=== PATIENT | female | born 1995 | race Caucasian/White ===

== ENCOUNTER 2021-10-17 18:33 | Outpatient (CLI) | payer OTHER, SELFPAY ==
[2021-10-17 18:56] VITALS: BMI 32.8
[2021-10-17 19:18] LABS: Microscopic, Urine URINE MICROSCOPIC (MICROSCOPIC)
[2021-10-17 19:21] VITALS: BP 128/88; PULSE 92; RESP 18; TEMP 36.6; O2SAT 98; BMI 32.8
[2021-10-17 19:22] LABS: Coronavirus 19, PCR Not Detected (NotDetected); Influenza A, PCR Not Detected (NotDetected); Influenza B, PCR Not Detected (NotDetected)
[2021-10-17 19:23] LABS: Appearance,Urine CLEAR (Clear); Bilirubin,Urine Negative (Negative); Blood, Urine 3+ (Negative); Color,Urine YELLOW (Yellow); Glucose,Urine (UA) Negative (Negative); Ketones,Urine Negative (Negative); Leukocyte Esterase,Urine 2+ (Negative); Nitrate,Urine POSITIVE (Negative); PH,Urine 6.5 (5.0-8.5); Protein,Urine 2+ (Negative); Specific Gravity, Urine 1.025 (1.005-1.030); Urobilinogen,Urine 0.2 EU/dl (0.2)
[2021-10-17 19:35] LABS: WBC,Urine TNTC #/hpf (0-3)
[2021-10-17 19:36] LABS: Bacteria,Urine 3+ /lpf; Benzodiazepines Screen,Urine Negative ng/ml (<200)
[2021-10-17 19:37] LABS: Amphetamine/Metha Screen,Urine Negative ng/ml (<1000); Barbiturates Screen,Urine Negative ng/ml (<200)
[2021-10-17 19:38] LABS: Cannabinoid Screen,Urine Negative ng/ml (<50)
[2021-10-17 19:39] LABS: Cocaine Screen,Urine Negative ng/ml (<300); Methadone Screen,Urine Negative ng/ml (<300)
[2021-10-17 19:40] LABS: Opiate Screen,Urine Negative ng/ml (<300)
[2021-10-17 19:41] LABS: Phencyclidine Screen,Urine Negative ng/ml (<25)
[2021-10-17 20:18] LABS: Fetal Fibronectin (Rapid) Negative (Negative)
== END 2021-10-17 20:10 | disposition home or self-care (01) ==
LOC: OBOUT 18:41 → OB 18:41
PROVIDERS: Visit Provider Nurse Practitioner Obstetrics & Gynecology
DX: O26.893 Other specified pregnancy related conditions, third trimester (principal); Z3A.30 30 weeks gestation of pregnancy; M54.50 Low back pain, unspecified
CPT/HCPCS: 59025; 80305; 81001; 82731; 87086; 87088; 87186; C9803; U0003; U0005

== ENCOUNTER 2021-10-18 12:28 | Outpatient (CLI) | payer OTHER, SELFPAY ==
[2021-10-18 12:52] VITALS: BP 104/51; PULSE 120; RESP 18; TEMP 37.2; O2SAT 100; BMI 32.8
[2021-10-18 14:22] LABS: Microscopic, Urine URINE MICROSCOPIC (MICROSCOPIC)
[2021-10-18 14:25] LABS: Appearance,Urine CLEAR (Clear); Bilirubin,Urine Negative (Negative); Blood, Urine TRACE-I (Negative); Color,Urine YELLOW (Yellow); Glucose,Urine (UA) Negative (Negative); Ketones,Urine 3+ (Negative); Leukocyte Esterase,Urine 1+ (Negative); Nitrate,Urine POSITIVE (Negative); Protein,Urine 1+ (Negative); Specific Gravity, Urine 1.025 (1.005-1.030); Urobilinogen,Urine 0.2 EU/dl (0.2)
[2021-10-18 14:30] LABS: Bacteria,Urine 4+ /lpf; Mucus,Urine 1+ /lpf; Squamous Epithelial Cell,Urine 20-50 #/hpf (0-5); WBC,Urine 20-50 #/hpf (0-3)
== END 2021-10-18 14:25 | disposition home or self-care (01) ==
LOC: OBOUT 12:28 → OB 12:29
PROVIDERS: Visit Provider Obstetrics & Gynecology
DX: O26.893 Other specified pregnancy related conditions, third trimester (principal); Z3A.30 30 weeks gestation of pregnancy; N39.0 Urinary tract infection, site not specified
CPT/HCPCS: 59025; 81001; 96360; 96365; 96367; G0463; J0696

== ENCOUNTER 2021-10-19 13:19 | Outpatient (CLI) | payer OTHER, SELFPAY ==
[2021-10-19 13:49] VITALS: BP 130/63; PULSE 95; RESP 18; TEMP 36.4; O2SAT 99
== END 2021-10-19 14:03 | disposition home or self-care (01) ==
LOC: INF 13:20
PROVIDERS: Visit Provider Obstetrics & Gynecology
DX: N39.0 Urinary tract infection, site not specified (principal)
CPT/HCPCS: 96372; J0696

== ENCOUNTER → 2021-10-30 10:09 | Outpatient (CLI) | payer OTHER, SELFPAY ==
[2021-10-30 10:44] LABS: Basophils # 0.1 K/mm3 (0-0.2); Basophils % 0.8 % (0.1-2.0); Eosinophils % 0.4 % (0.1-12.0); Hematocrit 32.8 % (37.0-47.0); Hemoglobin 11.2 g/dL (12.2-16.2); Lymphocytes # 2.1 K/mm3 (0.7-4.5); Lymphocytes % 21.8 % (10-50); Mean Corpuscular Hemoglobin 30.3 pg (27.0-31.2); Mean Corpuscular Volume 89.2 fl (81-99); Mean Platelet Volume 8.6 fl (7.4-10.4); Monocytes # 0.3 K/mm3 (0.1-1.0); Monocytes % 3.1 % (1.7-9.3); Neutrophils % 73.8 % (37.0-80.0); Platelet Count 362 K/mm3 (142-424); Red Blood Count 3.68 M/mm3 (4.20-5.40); Red Cell Distribution Width 14.7 % (11.5-17.5); White Blood Count 9.4 K/mm3 (4.8-10.8)
[2021-10-30 10:50] LABS: Glucose,Fasting 89 mg/dl (74-100)
[2021-10-30 12:35] LABS: Glucose 1 Hour 134 mg/dL (74-100)
== END ==
PROVIDERS: Visit Provider Obstetrics & Gynecology
DX: Z34.90 Encounter for supervision of normal pregnancy, unspecified, unspecified trimester (principal)
CPT/HCPCS: 82951; 85025

== ENCOUNTER 2021-11-02 11:11 | Outpatient (CLI) | payer OTHER, SELFPAY ==
[2021-11-02 11:45] VITALS: BP 112/74; PULSE 68; RESP 20; TEMP 36.9; O2SAT 95
== END 2021-11-02 12:00 | disposition home or self-care (01) ==
LOC: RAD 11:12
PROVIDERS: Visit Provider Obstetrics & Gynecology
DX: O09.30 Supervision of pregnancy with insufficient antenatal care, unspecified trimester (principal); O26.899 Other specified pregnancy related conditions, unspecified trimester; Z3A.32 32 weeks gestation of pregnancy; Z67.91 Unspecified blood type, Rh negative
CPT/HCPCS: 96372; J2790

== ENCOUNTER 2021-11-13 09:59 | Outpatient (CLI) | payer OTHER, SELFPAY ==
--- NOTE | 2021-11-13 09:59 | US_ITS ---
FINAL REPORT CLINICAL HISTORY: Growth and LINDA FINDINGS: There is a single live intrauterine gestation. Presentation is cephalic. Placenta is posterior, high, grade 2. movement is noted. Three-vessel cord with satisfactory umbilical cord insertion. Four-chamber heart is noted. brain and ventricles are unremarkable. Chest and diaphragm are unremarkable. ABDOMEN: Both kidneys are unremarkable. Stomach is unremarkable. SPINE: No anomalies identified. Both arms and legs noted. AMNIOTIC FLUID: Appropriate amount. MEASUREMENTS: ULTRASOUND AGE: 34 weeks 0 days. GESTATION AGE: 33 weeks 6 days. ESTIMATED WEIGHT: 2343 g GROWTH PERCENTILE: 50% BPD: 8.3 cm consistent with 33 weeks 4 days. OFD: 10.6 cm consistent with 33 weeks 4 days. HC: 29.9 cm consistent with 33 weeks 2 days. AC: 30.1 cm consistent with 34 weeks 1 day. FL: 6.74 cm consistent with 34 weeks 5 days. HC/AC: 0.99 CI: 79% FL/BPD: 81% FL/AC: 22% IMPRESSION: Single living IUP with an ultrasound age of 34 weeks 0 days. No anomalies noted. Reviewed, Interpreted and Dictated by Des Plasencia III, MD Transcribed by Magui Oswald Authenticated by Des Plasencia III, MD on 11/13/2021 11:37:25 AM [facility]
[2021-11-13 11:45] VITALS: BP 113/53; PULSE 95; RESP 18; TEMP 36.9; O2SAT 97
== END 2021-11-13 11:45 | disposition home or self-care (01) ==
LOC: RAD 09:59 → INF 10:51
PROVIDERS: Visit Provider Obstetrics & Gynecology
DX: O36.5990 Maternal care for other known or suspected poor fetal growth, unspecified trimester, not applicable or unspecified (principal)
CPT/HCPCS: 76816; 96372; J0696

== ENCOUNTER → 2021-11-13 16:49 | Outpatient (CLI) | payer OTHER, SELFPAY | PROVIDERS: Visit Provider Obstetrics & Gynecology | DX: N39.0 Urinary tract infection, site not specified (principal); B96.20 Unspecified Escherichia coli [E. coli] as the cause of diseases classified elsewhere | CPT/HCPCS: 87086; 87088; 87186 ==

== ENCOUNTER → 2021-11-20 15:50 | Outpatient (CLI) | payer OTHER, SELFPAY | PROVIDERS: Visit Provider Obstetrics & Gynecology | DX: Z34.90 Encounter for supervision of normal pregnancy, unspecified, unspecified trimester (principal) | CPT/HCPCS: 86403 ==

== ENCOUNTER 2021-12-06 06:46 | Outpatient (CLI) | payer BC, SELFPAY ==
[2021-12-06 06:52] VITALS: BP 110/70; PULSE 99; RESP 18; TEMP 37; O2SAT 98; BMI 32.5
[2021-12-06 07:03] VITALS: BMI 32.5
[2021-12-06 07:34] LABS: Microscopic, Urine URINE MICROSCOPIC (MICROSCOPIC)
[2021-12-06 07:37] LABS: Appearance,Urine CLEAR (Clear); Bilirubin,Urine Negative (Negative); Blood, Urine Negative (Negative); Color,Urine YELLOW (Yellow); Glucose,Urine (UA) Negative (Negative); Ketones,Urine Negative (Negative); Leukocyte Esterase,Urine Negative (Negative); Nitrate,Urine Negative (Negative); PH,Urine 6.5 (5.0-8.5); Protein,Urine Negative (Negative); Specific Gravity, Urine 1.015 (1.005-1.030); Urobilinogen,Urine 0.2 EU/dl (0.2)
[2021-12-06 07:50] LABS: Fetal Membrane Rupture (Rapid) Negative (Negative)
[2021-12-06 08:06] LABS: Bacteria,Urine Trace /lpf; RBC,Urine Occasional #/hpf (0-3)
[2021-12-06 08:28] LABS: Amphetamine/Metha Screen,Urine Negative ng/ml (<1000); Benzodiazepines Screen,Urine Negative ng/ml (<200)
[2021-12-06 08:29] LABS: Barbiturates Screen,Urine Negative ng/ml (<200)
[2021-12-06 08:30] LABS: Cannabinoid Screen,Urine Negative ng/ml (<50); Cocaine Screen,Urine Negative ng/ml (<300)
[2021-12-06 08:31] LABS: Methadone Screen,Urine Negative ng/ml (<300)
[2021-12-06 08:32] LABS: Opiate Screen,Urine Negative ng/ml (<300)
[2021-12-06 08:33] LABS: Phencyclidine Screen,Urine Negative ng/ml (<25)
== END 2021-12-06 08:37 | disposition home or self-care (01) ==
LOC: OBOUT 06:48 → OB 06:48
PROVIDERS: Visit Provider Obstetrics & Gynecology
DX: O60.03 Preterm labor without delivery, third trimester (principal); Z3A.37 37 weeks gestation of pregnancy; O42.90 Premature rupture of membranes, unspecified as to length of time between rupture and onset of labor, unspecified weeks of gestation
CPT/HCPCS: 59025; 80305; 81001; 84112; G0463

== ENCOUNTER 2021-12-10 20:11 | Outpatient (CLI) | payer BC, SELFPAY ==
[2021-12-10 20:18] VITALS: BMI 32.5
[2021-12-10 20:20] VITALS: BP 113/72; PULSE 99; RESP 18; TEMP 36.9; O2SAT 98; BMI 32.5
[2021-12-10 20:30] LABS: Microscopic, Urine URINE MICROSCOPIC (MICROSCOPIC)
[2021-12-10 20:44] LABS: Appearance,Urine CLEAR (Clear); Bilirubin,Urine Negative (Negative); Blood, Urine Negative (Negative); Color,Urine YELLOW (Yellow); Glucose,Urine (UA) Negative (Negative); Ketones,Urine Negative (Negative); Leukocyte Esterase,Urine Negative (Negative); Nitrate,Urine Negative (Negative); PH,Urine 6.5 (5.0-8.5); Protein,Urine Negative (Negative); Specific Gravity, Urine 1.015 (1.005-1.030); Urobilinogen,Urine 0.2 EU/dl (0.2)
[2021-12-10 20:56] LABS: Amphetamine/Metha Screen,Urine Negative ng/ml (<1000); Benzodiazepines Screen,Urine Negative ng/ml (<200)
[2021-12-10 20:57] LABS: Barbiturates Screen,Urine Negative ng/ml (<200)
[2021-12-10 20:58] LABS: Cannabinoid Screen,Urine Negative ng/ml (<50); Cocaine Screen,Urine Negative ng/ml (<300)
[2021-12-10 20:59] LABS: Methadone Screen,Urine Negative ng/ml (<300); Opiate Screen,Urine Negative ng/ml (<300)
[2021-12-10 21:00] LABS: Fetal Membrane Rupture (Rapid) Negative (Negative)
[2021-12-10 21:00] LABS: Phencyclidine Screen,Urine Negative ng/ml (<25)
[2021-12-10 21:04] LABS: Bacteria,Urine Trace /lpf; WBC,Urine Occasional #/hpf (0-3)
[2021-12-10 22:05] LABS: Fetal Membrane Rupture (Rapid) Negative (Negative)
== END 2021-12-10 22:20 | disposition home or self-care (01) ==
LOC: OBOUT 20:13 → OB 20:15
PROVIDERS: Visit Provider Nurse Practitioner Obstetrics & Gynecology
DX: O60.03 Preterm labor without delivery, third trimester (principal); Z3A.38 38 weeks gestation of pregnancy
CPT/HCPCS: 59025; 80305; 81001; 84112; G0463

== ENCOUNTER → 2021-12-11 11:12 | Outpatient (CLI) | payer BC, SELFPAY | PROVIDERS: Visit Provider Obstetrics & Gynecology | DX: Z01.812 Encounter for preprocedural laboratory examination (principal); Z11.52 Encounter for screening for COVID-19; Z34.90 Encounter for supervision of normal pregnancy, unspecified, unspecified trimester | CPT/HCPCS: C9803; U0003; U0005 ==

== ENCOUNTER 2021-12-13 04:58 | Inpatient (IN) | payer BC, SELFPAY ==
[2021-12-13 05:08] VITALS: BMI 33.1
[2021-12-13 05:49] LABS: Appearance,Urine CLEAR (Clear); Bilirubin,Urine Negative (Negative); Blood, Urine Negative (Negative); Color,Urine YELLOW (Yellow); Glucose,Urine (UA) Negative (Negative); Ketones,Urine Negative (Negative); Leukocyte Esterase,Urine Negative (Negative); Microscopic, Urine URINE MICROSCOPIC (MICROSCOPIC); Nitrate,Urine Negative (Negative); Protein,Urine Negative (Negative); Urobilinogen,Urine 0.2 EU/dl (0.2)
[2021-12-13 05:54] LABS: Coronavirus 19, PCR Not Detected (NotDetected); Influenza A, PCR Not Detected (NotDetected); Influenza B, PCR Not Detected (NotDetected)
[2021-12-13 05:56] VITALS: BP 116/73; PULSE 109; RESP 18; TEMP 36.3; O2SAT 100; BMI 33.1
[2021-12-13 05:56] LABS: Basophils # 0.1 K/mm3 (0-0.2); Basophils % 0.5 % (0.1-2.0); Eosinophils # 0.1 K/mm3 (0.0-0.4); Eosinophils % 0.9 % (0.1-12.0); Hematocrit 32.5 % (37.0-47.0); Hemoglobin 10.4 g/dL (12.2-16.2); Lymphocytes # 2.5 K/mm3 (0.7-4.5); Lymphocytes % 28.5 % (10-50); Mean Corpuscular HGB Conc 32.1 g/dL (31.8-35.4); Mean Corpuscular Hemoglobin 28.2 pg (27.0-31.2); Monocytes # 0.3 K/mm3 (0.1-1.0); Monocytes % 3.4 % (1.7-9.3); Neutrophils # 5.9 K/mm3 (1.8-7.8); Neutrophils % 66.6 % (37.0-80.0); Platelet Count 223 K/mm3 (142-424); Red Blood Count 3.69 M/mm3 (4.20-5.40); Red Cell Distribution Width 15.7 % (11.5-17.5); White Blood Count 8.9 K/mm3 (4.8-10.8)
[2021-12-13 06:00] LABS: Barbiturates Screen,Urine Negative ng/ml (<200)
[2021-12-13 06:01] LABS: Amphetamine/Metha Screen,Urine Negative ng/ml (<1000); Benzodiazepines Screen,Urine Negative ng/ml (<200)
[2021-12-13 06:02] LABS: Bacteria,Urine 1+ /lpf; Cannabinoid Screen,Urine Negative ng/ml (<50); Mucus,Urine 1+ /lpf
[2021-12-13 06:03] LABS: Cocaine Screen,Urine Negative ng/ml (<300); Methadone Screen,Urine Negative ng/ml (<300)
[2021-12-13 06:04] LABS: Opiate Screen,Urine Negative ng/ml (<300)
[2021-12-13 06:05] LABS: Phencyclidine Screen,Urine Negative ng/ml (<25)
--- NOTE | 2021-12-13 10:43 | HMH.HP ---
*Admission Date: 12/13/21 *Chief complaint: Induction of labor *History of present illness: 25 yo admitted for IOL at 38 4/7 secondary to oligohydramnios care has been sparse, with long gaps between appointments also complicated by Rh negative maternal status and mild anemia H History *Have you ever received a pneumonia vaccine?: No *Have you received a flu vaccine this season?: No Other Surgeries: Yes: Cholecystectomy. No: Amputation: No Fractures: No - *Social History Smoking Status: Never smoker Alcohol Intake: never Substance Use Type: denies use *Occupational Status:: unemployed *Travel in the last 8 weeks: None Family Hx:: Hypertension Para: 2 Review of Systems - Review of Systems Review of systems:: pertinent systems reviewed and negative unless documented below - *Genitourinary Denies abnormal vaginal bleeding Meds Home Medications Medication Instructions Recorded Confirmed Type ondansetron 4 mg disintegrating 4 mg PO Q6H PRN #30 tab 10/19/21 12/13/21 Rx tablet prenat.vits,zulema,bst-pjuz-emzvh 1 tab PO DAILY 10/30/21 12/13/21 History cephalexin 500 mg capsule 500 mg PO HS cap 11/27/21 12/13/21 History Allergies Allergy/AdvReac Type Severity Reaction Status Date / Time nitrofurantoin Allergy Vomiting Verified 12/11/21 10:17 [From Macrobid] Exam Vital signs and Labs for Last 24 Hours: Temp Pulse Resp BP Pulse Ox 97.4 F L 109 H 18 116/73 100 12/13/21 05:56 12/13/21 05:56 12/13/21 05:56 12/13/21 05:56 12/13/21 05:56 Laboratory Results - last 24 hr 12/13/21 05:35: WBC 8.9, RBC 3.69 L, Hgb 10.4 L, Hct 32.5 L, MCV 88.0, MCH 28.2, MCHC 32.1, RDW 15.7, Plt Count 223, MPV 11.0 H, Neut % (Auto) 66.6, Lymph % (Auto) 28.5, [place] % (Auto) 3.4, Eos % (Auto) 0.9, Baso % (Auto) 0.5, Neut # (Auto) 5.9, Lymph # (Auto) 2.5, [place] # (Auto) 0.3, Eos # (Auto) 0.1, Baso # (Auto) 0.1 12/13/21 05:35: Urine Color Yellow, Urine Appearance Clear, Urine pH 6.0, Ur Specific [place] 1.020, Urine Protein Negative, Urine Glucose (UA) Negative, Urine Ketones Negative, Urine Blood Negative, Urine Nitrate Negative, Urine Bilirubin Negative, Urine Urobilinogen 0.2, Ur Leukocyte Esterase Negative, Urine WBC 3-5, Ur Squamous Epith Cells 10-20, Urine Bacteria 1+, Urine Mucus 1+ 12/13/21 05:35: SARS-CoV-2 (PCR) Not detected, Influenza A Untype (PCR) Not detected, Influenza Type B (PCR) Not detected 12/13/21 05:35: Urine Opiates Screen Negative, Urine Methadone Screen Negative, Ur Barbituates Screen Negative, Ur Phencyclidine Scrn Negative, Ur Amphetamines Screen Negative, U Benzodiazepines Scrn Negative, Urine Cocaine Screen Negative, U Marijuana (THC) Screen Negative 12/13/21 05:35: Blood Type O Negative, Antibody Screen Positive I & O for Last 24 hours: Intake & Output 12/10/21 12/11/21 12/12/21 12/13/21 11:59 11:59 11:59 11:59 Weight 199 lb - Constitutional no acute distress - *Routine HEENT Exam Head: Present: normocephalic Eye: Present: EOMI, PERRL ENT: Present: mucous membranes moist - *Routine Neck Exam Present: supple. Absent: lymphadenopathy - *Routine Respiratory Exam Present: CTA bilaterally - *Routine Cardiovascular Exam Present: RRR - *Routine Abdominal Exam Present: soft, normoactive bowel sounds. Absent: tenderness - *Routine Rectal Exam Rectal:: deferred - *Routine Genitalia Exam Genitalia:: normal female Comment:: AROM, clear fluid IUPC and FSE placed without difficulty or complication. - *Routine Extremities Exam Absent: cyanosis, clubbing, edema - *Routine Skin Exam Present: warm. Absent: rash - *Routine Neurological Exam Present: alert, oriented X3 Assessment and Plan (1) 38 weeks gestation of Status: Acute Category: Medical Code(s): Z3A.38 - 38 weeks gestation of (2) Limited care Status: Acute Category: Medical Code(s): O09.30 - Supervision of with i
--- NOTE | 2021-12-13 17:33 | HMH.DN ---
- Delivery Note Delivery Date:: 12/13/21 Delivery Time:: 17:11 Anesthesia Type: None Was labor medically induced?: Yes Induction method: per pitocin protocol Gestational age (weeks): 38 Infant delivered prior to 39 weeks?: Yes Justification for early elective delivery:: Oligohydraminos Gender: Male at 1 minute: 7 at 5 minutes: 9 Delivery Procedure:: Precipitous spontaneous vaginal delivery of live born, vigorous male Delivery uncomplicated No shoulder dystocia with delivery placed in BETHEL immediately after delivery, with standard nursing assessment performed Infant Apgars: 7 & 9 Placenta spontaneously expressed and examined; noted to be complete/intact. Vulva, vagina, and cervix inspected; no lacerations present EBL: 300 cc All sponge/needle/instrument counts correct at conclusion of procedure Placental Delivery Description: Spontaneous
[2021-12-13 19:14] VITALS: BP 115/70; PULSE 87; RESP 18; TEMP 36.6; O2SAT 98
[2021-12-13 19:16] LABS: Hematocrit 30.8 % (37.0-47.0)
[2021-12-14 04:00] VITALS: BP 127/70; PULSE 88; RESP 17; TEMP 36.6; O2SAT 98
[2021-12-14 07:04] LABS: Hematocrit 29.8 % (37.0-47.0); Hemoglobin 9.6 g/dL (12.2-16.2)
[2021-12-14 08:22] VITALS: BP 117/62; PULSE 85; RESP 18; TEMP 36.7; O2SAT 99
--- NOTE | 2021-12-14 09:09 | P.PN_ITS ---
Internal Medicine - PN: Subj *Date: 12/14/21 *Time: 09:09 Interval history: PPD #1 No unusual complaints Ambulating and voiding without difficulty Tolerating regular diet Asymptomatic with buucc-vk-zttqsid anemia Hgb dropped to 9.6 from 10.4 Exam Vital signs and Labs for Last 24 Hours: Temp Pulse Resp BP Pulse Ox 97.6 F 83 18 109/65 L 98 12/15/21 03:40 12/15/21 03:40 12/15/21 03:40 12/15/21 03:40 12/15/21 03:40 Laboratory Results - last 24 hr 12/13/21 05:35: Crossmatch ([facility]) See Detail I & O for Last 24 hours: Intake & Output 12/12/21 12/13/21 12/14/21 12/15/21 11:59 11:59 11:59 11:59 Weight 199 lb Narrative: CONSTITUTIONAL: no acute distress HEENT: mucous membranes moist PULMONARY: breathing unlabored without audible wheezes CV: no tachycardia or visible JVD; normal LE peripheral pulses ABD: soft, NT/ND, no guarding : fundus firm below umbilicus SKIN: no visible rash or lesions EXT: 1+ edema LEs NEURO: alert/oriented, no altered mental status PSYCH: appropriate mood and demeanor Assessment and Plan (1) 38 weeks gestation of Status: Acute Category: Medical Code(s): Z3A.38 - 38 weeks gestation of (2) Limited care Status: Acute Category: Medical Code(s): O09.30 - Supervision of with insufficient care, unspecified trimester (3) Oligohydramnios Status: Acute Category: Medical Code(s): O41.00X0 - Oligohydramnios, unspeci fied trimester, not applicable or unspecified (4) Anemia complicating Status: Acute Category: Medical Code(s): O99.019 - Anemia complicating , unspecified trimester (5) Rh negative status during Status: Acute Category: Medical Code(s): O26.899 - Other specified related conditions, unspecified trimester; Z67.91 - Unspecified blood type, Rh negative (6) Vaginal delivery Status: Acute Category: Medical Code(s): O80 - Encounter for full-term uncomplicated delivery - Assessment and plan all Dx Assessment and Plan for all problems:: Routine care FeSO4 for anemia Anticipate discharge home PPD #2
[2021-12-14 15:59] VITALS: BP 117/62; PULSE 91; RESP 20; TEMP 36.7; O2SAT 99
[2021-12-14 19:48] VITALS: BP 109/53; PULSE 91; RESP 18; TEMP 36.7; O2SAT 96
[2021-12-15 03:40] VITALS: BP 109/65; PULSE 83; RESP 18; TEMP 36.4; O2SAT 98
--- NOTE | 2021-12-15 09:12 | P.DS_ITS ---
General - General Admission date:: 12/13/21 Discharge date: 12/15/21 HPI HPI: 25 yo admitted for IOL at 38 4/7 secondary to oligohydramnios care has been sparse, with long gaps between appointments also complicated by Rh negative maternal status and mild anemia Hospital Course Hospital Course: course uncomplicated Discharged home on PPD #2 in stable condition No unusual complaints Ambulating and voiding without difficulty Tolerating regular diet Asymptomatic with uxske-uv-qnkepjv anemia Hgb dropped to 9.6 from 10.4 Rhogam Administration: Not Indicated Objective Vital signs: Temp Pulse Resp BP Pulse Ox 97.6 F 83 18 109/65 L 98 12/15/21 03:40 12/15/21 03:40 12/15/21 03:40 12/15/21 03:40 12/15/21 03:40 Narrative: CONSTITUTIONAL: no acute distress HEENT: mucous membranes moist PULMONARY: breathing unlabored without audible wheezes CV: no tachycardia or visible JVD; normal LE peripheral pulses ABD: soft, NT/ND, no guarding : fundus firm below umbilicus SKIN: no visible rash or lesions EXT: 1+ edema LEs NEURO: alert/oriented, no altered mental status PSYCH: appropriate mood and demeanor Results Labs on day of discharge: Labs from last 24 hours 12/13/21 05:35 Crossmatch ([facility]G) See Detail DS: Diagnosis - Discharge Diagnosis (1) 38 weeks gestation of Status: Acute (2) Limited care Status: Acute (3) Oligohydramnios Status: Acute (4) Anemia complicating Status: Acute (5) Rh negative status during Status: Acute (6) Vaginal delivery Status: Acute Discharge Plan - Patient Discharge Instructions ACTIVITY: Continue current activity DIET: regular diet Additional Instructions: NOTHING IN THE VAGINA FOR 6 WEEKS NO TUB BATHS DRINK PLENTY OF FLUIDS Patient Instructions: Depression, Hemorrhage, DI for Labor and Delivery, Vaginal , DI for Pre-eclampsia, [facility] Post Discharge Instructions, Preventing the Spread of Coronavirus Discharge Inst ructions - Follow up Plan Follow up with: Glenys Becerra MD [Staff Physician] - 01/24/22 9:30 am Disposition: Home, Self-Care Condition at discharge:: Stable Home Medications: Home Medications Medication Instructions Recorded Confirmed Type ondansetron 4 mg disintegrating 4 mg PO Q6H PRN #30 tab 10/19/21 12/13/21 Rx tablet prenat.vits,zulema,syy-kweg-nydjm 1 tab PO DAILY 10/30/21 12/13/21 History cephalexin 500 mg capsule 500 mg PO HS cap 11/27/21 12/13/21 History Prescriptions/Medication Reconciliation: New Ibuprofen [Motrin 400mg tablet] 800 mg PO Q6HP PRN tab PRN Reason: Mild To Moderate Pain Acetaminophen [Acetaminophen 325mg tab] 650 mg PO Q4HP PRN tab PRN Reason: Mild Pain Continued prenat.vits,zulema,lkp-iurv-enkbu 1 tab PO DAILY cephalexin 500 mg capsule 500 mg PO HS cap ondansetron 4 mg disintegrating tablet 4 mg PO Q6H PRN #30 tab PRN Reason: nausea and vomiting - Problem Reconciliation Problems Reviewed?: Yes
== END 2021-12-15 14:00 | disposition home or self-care (01) | DRG 806 ==
PROVIDERS: Admitting Provider Obstetrics & Gynecology; Visit Provider Obstetrics & Gynecology
DX: O99.02 Anemia complicating childbirth (principal); O41.03X0 Oligohydramnios, third trimester, not applicable or unspecified; Z37.0 Single live birth; Z3A.38 38 weeks gestation of pregnancy
CPT/HCPCS: 59409; 36415; 59025; 80305; 81001; 85014; 85018; 85025; 86850; 86870; 94761; C1758; C9803; G0283; U0003; U0005

== ENCOUNTER → 2022-09-12 06:28 | Outpatient (CLI) | payer BC, SELFPAY | PROVIDERS: PCP Nurse Practitioner Family; Visit Provider Nurse Practitioner Family | DX: J02.9 Acute pharyngitis, unspecified (principal) | CPT/HCPCS: 87070 ==

== ENCOUNTER 2023-06-12 21:17 | Emergency (ER) | payer BC, SELFPAY ==
[2023-06-12 21:19] VITALS: BP 129/79; PULSE 92; RESP 18; TEMP 36.4; O2SAT 99; BMI 33.3
--- NOTE | 2023-06-12 21:39 | XR_ITS ---
PROCEDURE INFORMATION: Exam: XR Left Foot Exam date and time: 06/12/2023 9:40 PM Age: 27 years old Clinical indication: Pain; Foot; Left; Patient HX: Hit pinky toe on furniture; Additional info: Deformity TECHNIQUE: Imaging protocol: Radiologic exam of the left foot. Views: 1 or 2 views. COMPARISON: No relevant prior studies available. FINDINGS: Bones/joints: There is a minimally displaced fracture through the 5th proximal phalanx with associated soft tissue swelling. Soft tissues: See Bones/joints finding. IMPRESSION: There is a minimally displaced fracture through the 5th proximal phalanx with associated soft tissue swelling.
[2023-06-12 22:00] VITALS: BP 125/82; PULSE 90; RESP 20; O2SAT 98
--- NOTE | 2023-06-12 22:25 | HMH.EDGENADL ---
Discharge Plan Disposition Patient Disposition: Home, Self-Care Prescriptions Prescriptions: No Action No Known Home Medications Referrals Follow up/Referrals: Provider,Referral, [Primary Care Provider] - See instructions Activity Restrictions/Add. Instructions Additional Instructions/Restrictions: Call your family doctor to establish care for this visit to the emergency department and schedule follow-up within 48 hours to ensure improvement. If you have any worsening of your condition or any other concerning signs or symptoms, return to the emergency department or your primary care doctor for further evaluation. Wear hard sole shoe as much as possible until follow-up. Take Tylenol 1000 mg every 6 hours (4 times daily) and ibuprofen 400 mg every 6 hours (4 times daily) as needed with food and water to prevent GI upset and kidney damage. Clinical Impressions Clinical Impression: Fracture of left toe Discharge ED Provider: Den Bowie General Adult HPI General Chief complaint: Extremity Problem,Nontraumatic Stated complaint: AO 06/12@2044 injured l Foot Time Seen by Provider: 06/12/23 21:22 Mode of Arrival: Ambulatory Source of Information: Patient Limitations: No Limitations Description of Symptoms (Recalled from ER Triage Doc. by RN): Pt caught left pinky toe on edge of her coffee table. Obvious deformity pain 5/10. No redness or swelling, palpable pulses History of Present Illness HPI narrative: Is a 27-year-old female with no relevant medical history presenting with left little toe injury. Patient states that she hit it on a coffee table just before arrival. Cannot move it, but can still feel it. No other trauma sustained. Related Data Home Medications Medication Instructions Recorded Confirmed No Known Home Medications 06/12/23 06/12/23 Allergies Allergy/AdvReac Type Severity Reaction Status Date / Time nitrofurantoin Allergy Vomiting Verified 11/06/22 11:51 [From Macrobid] [facility] Disclaimer: The information contained in this section may have been updated after the patient was seen, as this information can be updated by other users. Surgical History History of cholecystectomy Family History Mother Hypertension Grandmother Hypertension Social History Smoking Status: Never smoker alcohol intake: never substance use type: denies use current occupational status: unemployed Travel in the last 8 weeks: None ROS Obtained: Yes All systems reviewed & no additional complaints except as documented Physical Exam General General appearance: alert, in no apparent distress and other ( ) Head Head exam: atraumatic and normocephalic Eye Eye exam: Present normal appearance, PERRL and EOMI ENT ENT exam: Present mucous membranes moist Neck Neck exam: Present normal inspection, full ROM and trachea midline Respiratory Respiratory exam: Absent respiratory distress, wheezes, stridor, accessory muscle use or prolonged expiratory phase Cardiovascular Cardiovascular exam: Present regular rate and normal rhythm Abdominal Exam Abdominal exam: Present soft; Absent distention, tenderness, guarding, rebound, rigidity or normal bowel sounds Extremities Exam Extremities exam: Absent edema Neurological Exam Neurological exam: Present alert, oriented X3, CN II-XII intact and normal gait; Absent motor sensory deficit Skin Skin exam: Present warm and dry; Absent diaphoresis or erythema Medical Decision Making Medical Records Medical records reviewed: Yes I reviewed the patient's medical records. Garry Inquiry Pt receiving controlled substance: No Garry was queried for this patient: No Vital Signs: 06/12/23 21:19 06/12/23 22:00 06/12/23 22:30 Temperature 97.5 F L Temperature Source Oral Pulse Rate 90
[2023-06-12 22:30] VITALS: BP 114/72; PULSE 88; RESP 18; O2SAT 99
[2023-06-12 23:00] VITALS: BP 122/67; PULSE 81; RESP 20; O2SAT 100
[2023-06-12 23:30] VITALS: BP 108/74; PULSE 80; RESP 18; O2SAT 100
[2023-06-13 00:15] VITALS: BP 115/78; PULSE 85; RESP 20; TEMP 36.7; O2SAT 98
== END 2023-06-13 00:17 | disposition home or self-care (01) ==
PROVIDERS: Emergency Provider Emergency Medicine
DX: S92.512A Displaced fracture of proximal phalanx of left lesser toe(s), initial encounter for closed fracture (principal); W22.09XA Striking against other stationary object, initial encounter
CPT/HCPCS: 73620; 99283

== ENCOUNTER 2024-04-16 08:00 | Emergency (ER) | payer OTHER, BC, SELFPAY ==
[2024-04-16 08:10] VITALS: BP 133/87; PULSE 80; RESP 20; TEMP 36.6; O2SAT 98; BMI 33.4
--- NOTE | 2024-04-16 08:23 | ED_ITS ---
Discharge Plan Disposition Patient Disposition: Home, Self-Care Condition: Good Prescriptions Prescriptions: New azithromycin [Zithromax] 250 mg tablet 250 mg PO UD DOSE PK Qty: 6 0RF Rx Instructions: Take two (2) tablets today, then one (1) tablet days #2 thru #5 methylprednisolone 4 mg Tablets,Dose Pack 4 mg PO DIRECTED 6 Days Qty: 21 0RF Rx Instructions: Take 1 pack as directed for 6 days cjwwlvrvfwnqktf-yakewhcbq-QM [Bromfed DM] 2-30-10 mg/5 mL Syrup 5 ml PO Q6H PRN (Reason: Cough) Qty: 240 0RF Referrals Follow up/Referrals: Nargis De Paz APRN [Primary Care Provider] - See instructions Activity Restrictions/Add. Instructions Additional Instructions/Restrictions: Drink plenty of fluids. Take tylenol or ibuprofen for pain or fever. Take the medications as directed. Follow up with your regular doctor. GO TO THE ER FOR ANY WORSENING SYMPTOMS Clinical Impressions Clinical Impression: Acute viral syndrome, Bronchitis Stand Alone Forms Stand Alone Forms: Work/School Release Instructions Patient Instructions: DI for Acute Bronchitis, DI for Viral Syndrome Discharge ED Provider: Ben Loera [facility] General Stated complaint: chest congestion cough Mode of Arrival: Ambulatory Source of Information: Patient Limitations: No Limitations Time Seen by Provider: 04/16/24 08:22 Description of Symptoms (Recalled from Triage Doc. by RN): PATIENT C/O COUGH, SOA, AND CHEST HURTING WITH COUGH AND TAKING A DEEP BREATH X 2 DAYS HEENT Symptoms (Recalled from RN notes): No Resp Symptoms (Recalled from RN notes): Yes Skin Symptoms (Recalled from RN notes): No MS Symptoms (Recalled from RN notes): No Functional Status (Recalled from RN notes): WNL History of Present Illness Provider Complaint: She states that for the past 4 days she has had chest tightness, chest congestion with productive cough, pleuritic type chest pain, and malaise. Related Data Previous Rx's Medication Instructions Recorded azithromycin 250 mg tablet 250 mg PO UD DOSE PK #6 tabs 04/16/24 (Zithromax) qgqfyiofpxxrbrs-ischzvvsyvpouyp-LS 5 ml PO Q6H PRN Cough #240 mL 04/16/24 2 mg-30 mg-10 mg/5 mL oral syrup (Bromfed DM) methylprednisolone 4 mg tablets in 4 mg PO DIRECTED 6 days #21 tabs 04/16/24 a dose pack Allergies Allergy/AdvReac Type Severity Reaction Status Date / Time nitrofurantoin Allergy Vomiting Verified 03/04/24 13:45 [From Macrobid] Worker's Comp Is this a Worker's Comp case?: No [facility] Disclaimer: The information contained in this section may have been updated after the patient was seen, as this information can be updated by other users. Surgical History History of cholecystectomy Family History Mother Hypertension Grandmother Hypertension Social History Smoking Status: Never smoker alcohol intake: never substance use type: denies use current occupational status: unemployed Travel in the last 8 weeks: None ROS Obtained: Yes All systems reviewed & no additional complaints except as documented Constitutional Constitutional: Reports poor appetite Eyes Eyes: Reports system reviewed and no additional complaints, except as documented ENT Ears, Nose, Mouth, and Throat: Reports as per HPI Cardiovascular Cardiovascular: Reports system reviewed and no additional complaints, except as documented and Denies chest pain Respiratory Respiratory: Denies shortness of breath, Reports chest congestion, Reports cough, Denies stridor and Denies wheezing Gastrointestinal Gastrointestingal: Reports system reviewed and no additional complaints, except as documented; Denies abdominal pain, diarrhea or vomiting Musculoskeletal Musculoskeletal: Reports system reviewed and no additional complaints, except as documented and Denies arthralgias Integumentary/Breasts Skin/Breast: Reports system reviewed and no additional complaints, except as documented and Denies rash Neurologic Neurologic: Denies paresthesias Allergic/Immunologic Allergic/Immunologic: Denies wheezing Physical Exam General General appearance: alert and in no apparent distress Eye Eye exam: Present normal appearance, PERRL and EOMI ENT ENT exam: Present mucous membranes moist and normal external ear exam Expanded ENT Exam External ear exam: Present normal external inspection TM/Canal exam: Bilateral TM: erythema and bulging Nose exam: Absent sinus tenderness Nasal speculum exam: Bilateral: normal Mouth exam: Present normal external inspection; Absent drooling Teeth exam: Present normal inspection Throat exam: Present tonsillar erythema and tonsillomegaly Neck Neck exam: Present normal inspection, full ROM and trachea midline; Absent tenderness, lymphadenopathy or thyromegaly Chest Chest inspection: Present normal inspection and symmetric chest wall rise; Absent tenderness or rash Respiratory Respiratory exam: Present normal lung sounds bilaterally; Absent respiratory distress, wheezes, stridor or accessory muscle use Cardiovascular Cardiovascular exam: Present regular rate, normal rhythm and normal heart sounds Abdominal Exam Abdominal exam: Present soft; Absent distention, tenderness, guarding, rebound or rigidity Extremities Exam Extremities exam: Present normal inspection, full ROM and normal capillary refill; Absent tenderness or calf tenderness Back Exam Back exam: Present normal inspection and full ROM; Absent tenderness Neurological Exam Neurological exam: Present alert and oriented X3 Psychiatric Psychiatric exam: Present normal affect and normal mood Skin Skin exam: Present warm, dry, intact and normal color Lymphatic Lymphatic Findings: no adenopathy Medical Decision Making Medical Records Medical records reviewed: No I reviewed the patient's medical records. Garry Inquiry Pt receiving controlled substance: No Vital Signs: 04/16/24 08:10 Temperature 97.9 F Temperature Source Oral Pulse Rate [Left Brachial] 80 Respiratory Rate 20 Blood Pressure [Left Arm] 133/87 Blood Pressure Mean [Left Arm] 102 Blood Pressure Source [Left Arm] Automatic Cuff Blood Pressure Position [Left Arm] Sitting 02 Sat by Pulse Oximetry 98 Oxygen Delivery Method Room Air
[2024-04-16 08:42] VITALS: BP 133/87; PULSE 80; RESP 20; TEMP 36.6; O2SAT 98
[2024-04-16 08:49] LABS: Coronavirus 19, PCR Not Detected (NotDetected); Influenza A, PCR Not Detected (NotDetected); Influenza B, PCR Not Detected (NotDetected)
== END 2024-04-16 08:44 | disposition home or self-care (01) ==
PROVIDERS: Emergency Provider Nurse Practitioner Family; PCP Nurse Practitioner Family
DX: R07.1 Chest pain on breathing (principal); J20.9 Acute bronchitis, unspecified; R05.9 Cough, unspecified; B34.9 Viral infection, unspecified
CPT/HCPCS: 87636; 99204; 99212; G0463

== ENCOUNTER 2024-05-03 13:21 | Outpatient (CLI) | payer OTHER, BC, SELFPAY ==
[2024-05-03 14:24] LABS: HCG,Quantitative < 2 mIU/ml (0-5.42)
[2024-05-04 12:55] LABS: Progesterone 0.2 ng/mL (.)
== END 2024-05-03 23:59 | disposition home or self-care (01) ==
LOC: LAB 13:21
PROVIDERS: PCP Nurse Practitioner Family; Visit Provider Nurse Practitioner Obstetrics & Gynecology
DX: N93.9 Abnormal uterine and vaginal bleeding, unspecified (principal)
CPT/HCPCS: 36415; 84144; 84702

== ENCOUNTER 2024-09-17 16:36 | Emergency (ER) | payer OTHER, BC, SELFPAY ==
[2024-09-17 17:19] VITALS: BP 133/89; PULSE 85; RESP 20; TEMP 37.5; O2SAT 97; BMI 31.6
--- NOTE | 2024-09-17 17:35 | EXP.UTC ---
Discharge Plan Disposition Patient Disposition: Home, Self-Care Condition: Good Prescriptions Prescriptions: New iucciifflzrxwlb-zgjlaijrq-EI [Bromfed DM] 2-30-10 mg/5 mL Syrup 5 ml PO Q6H PRN (Reason: Cough) Qty: 240 0RF ondansetron 4 mg Tablet,Disintegrating 4 mg PO Q8H PRN (Reason: Nausea) Qty: 12 0RF Referrals Follow up/Referrals: Nargis De Paz APRN [Primary Care Provider] - See instructions Activity Restrictions/Add. Instructions Additional Instructions/Restrictions: Drink plenty of fluids. Take tylenol or ibuprofen for pain or fever. Take the medications as directed. Follow up with your regular doctor. GO TO THE ER FOR ANY WORSENING SYMPTOMS Clinical Impressions Clinical Impression: Acute viral syndrome, Exposure to influenza Stand Alone Forms Stand Alone Forms: Work/School Release Instructions Patient Instructions: DI for Viral Syndrome, Ondansetron Print Language Print Language: [place] Discharge ED Provider: Ben Loera [facility] General Stated complaint: Flu swab Mode of Arrival: Ambulatory Source of Information: Patient Time Seen by Provider: 09/17/24 17:35 Description of Symptoms (Recalled from Triage Doc. by RN): INTERMITTENT FEVER, BODY ACHES, ESTEVES, COUGH, SORE THROAT HEENT Symptoms (Recalled from RN notes): Yes Resp Symptoms (Recalled from RN notes): Yes Skin Symptoms (Recalled from RN notes): No MS Symptoms (Recalled from RN notes): No Functional Status (Recalled from RN notes): WNL Related Data Previous Rx's ?Medication ?Instructions ?Recorded ranehmuoboilvdh-mkogcnpjkpwuctr-FX 5 ml PO Q6H PRN Cough #240 mL 09/17/24 2 mg-30 mg-10 mg/5 mL oral syrup (Bromfed DM) ondansetron 4 mg disintegrating 4 mg PO Q8H PRN Nausea #12 tabs 09/17/24 tablet Allergies Allergy/AdvReac Type Severity Reaction Status Date / Time nitrofurantoin (From Allergy Vomiting Verified 03/04/24 13:45 Macrobid) Worker's Comp Is this a Worker's Comp case?: No [facility] Disclaimer: The information contained in this section may have been updated after the patient was seen, as this information can be updated by other users. Surgical History History of cholecystectomy Family History Mother Hypertension Grandmother Hypertension Social History Smoking Status: Never smoker alcohol intake: never substance use type: denies use current occupational status: unemployed Travel in the last 8 weeks: None Have you lived/traveled outside [place] in past 30 days?: No Contact w/someone who lives/traveled outside [place] past 30 days?: No Exposure to someone with infectious disease in past 14 days?: No Do you have a fever (greater than 100.4 F or 38 C)?: No Have you tested positive for COVID-19: No Exposed to someone with COVID-19 in past 14 days?: No Do you have a sore throat?: Yes Do you have a cough?: Yes Do you have any weakness?: No Do you have any diarrhea?: No Are you experiencing any unusual bleeding?: No Do you have any muscle aches/pain?: Yes Do you have any abdominal pain?: No Are you experiencing loss of taste or smell?: No ROS Obtained: Yes All systems reviewed & no additional complaints except as documented Constitutional Constitutional: Reports chills and Reports fever(s) Eyes Eyes: Denies eye discharge ENT Ears, Nose, Mouth, and Throat: Reports as per HPI Cardiovascular Cardiovascular: Denies chest pain Respiratory Respiratory: Denies chest congestion and Reports cough Gastrointestinal Gastrointestingal: Reports nausea; Denies abdominal pain, constipation, cramping, diarrhea or vomiting Musculoskeletal Musculoskeletal: Denies arthralgias Integumentary/Breasts Skin/Breast: Denies rash Neurologic Neurologic: Denies paresthesias Physical Exam General General appearance: alert and in no apparent distress Head Head exam: atraumatic, normocephalic and normal inspection Eye Eye exam: Present normal appearance, PERRL and EOMI ENT ENT exam: Present normal exam, normal oropharynx, mucous membranes moist, TM's normal bilaterally and normal external ear exam Neck Neck exam: Present normal inspection, full ROM and trachea midline; Absent meningismus or lymphadenopathy Chest Chest inspection: Present normal inspection and symmetric chest wall rise; Absent tenderness Respiratory Respiratory exam: Present normal lung sounds bilaterally; Absent respiratory distress Cardiovascular Cardiovascular exam: Present regular rate and normal rhythm; Absent JVD Abdominal Exam Abdominal exam: Present soft and normal bowel sounds; Absent distention, tenderness or guarding Extremities Exam Extremities exam: Present normal inspection, full ROM and normal capillary refill; Absent calf tenderness Back Exam Back exam: Present normal inspection; Absent tenderness Neurological Exam Neurological exam: Present alert and oriented X3 Psychiatric Psychiatric exam: Present normal affect and normal mood Skin Skin exam: Present warm, dry, intact and normal color Lymphatic Lymphatic Findings: no adenopathy Medical Decision Making Medical Records Medical records reviewed: No I reviewed the patient's medical records. Screening: Per USPSTF and CDC recommendations, given the prevalence of disease in our region, it is our hospital?s policy to screen for HIV and viral Hepatitis for all patients aged 18 and over and those with ongoing risk factors. Garry Inquiry Pt receiving controlled substance: No Vital Signs: 09/17/24 17:19 Temperature 99.5 F Temperature Source Oral Pulse Rate [Left Radial] 85 Respiratory Rate 20 Blood Pressure [Left Arm] 133/89 Blood Pressure Mean [Left Arm] 103 02 Sat by Pulse Oximetry 97
[2024-09-17 17:38] LABS: UTC Influenza A Antigen Negative (Negative); UTC Strep Screen (Rapid) Negative (Negative)
[2024-09-17 17:39] LABS: UTC Influenza B Antigen Negative (Negative)
[2024-09-17 18:12] VITALS: BP 133/89; PULSE 85; RESP 20; TEMP 37.5
[2024-09-17 18:20] LABS: Coronavirus 19, PCR Not Detected (NotDetected); Influenza B, PCR Not Detected (NotDetected)
[2024-09-17 18:50] LABS: Influenza A, PCR Detected (NotDetected)
== END 2024-09-17 18:17 | disposition home or self-care (01) ==
PROVIDERS: Emergency Provider Nurse Practitioner Family; PCP Nurse Practitioner Family
DX: B34.9 Viral infection, unspecified (principal); R50.9 Fever, unspecified; R51.9 Headache, unspecified; R05.9 Cough, unspecified; J02.9 Acute pharyngitis, unspecified; M79.10 Myalgia, unspecified site; Z20.828 Contact with and (suspected) exposure to other viral communicable diseases
CPT/HCPCS: 87636; 87804; 87880; 99212; G0381

== ENCOUNTER 2025-01-20 09:30 | Outpatient (CLI) | payer OTHER, BC, SELFPAY ==
[2025-01-20 09:54] LABS: Basophils % 0.7 % (0.1-2.0); Eosinophils # 0.1 K/mm3 (0.0-0.4); Eosinophils % 1.8 % (0.1-12.0); Hematocrit 41.4 % (37.0-47.0); Hemoglobin 13.5 g/dL (12.2-16.2); Lymphocytes # 2.5 K/mm3 (0.7-4.5); Lymphocytes % 40.8 % (10-50); Mean Corpuscular HGB Conc 32.6 g/dL (31.8-35.4); Mean Corpuscular Hemoglobin 29.3 pg (27.0-31.2); Mean Corpuscular Volume 89.8 fl (81-99); Mean Platelet Volume 10.4 fl (7.4-10.4); Monocytes # 0.3 K/mm3 (0.1-1.0); Monocytes % 5.1 % (1.7-9.3); Neutrophils # 3.1 K/mm3 (1.8-7.8); Neutrophils % 51.4 % (37.0-80.0); Nucleated Red Blood Cells # 0 10^3/uL; Nucleated Red Blood Cells % 0 %; Platelet Count 237 K/mm3 (142-424); Red Blood Count 4.61 M/mm3 (4.20-5.40); Red Cell Distribution Width-SD 42.3 fL
[2025-01-20 10:17] LABS: Albumin Level 4.4 g/dl (3.5-5.0); Chloride 107 mmol/L (98-107); Potassium 4.1 mmoL/L (3.5-5.1); Sodium 140 mmol/L (136-145)
[2025-01-20 10:20] LABS: Alanine Aminotransferase 21 U/L (12-78); Albumin/Globulin Ratio 1.6 (1.1-1.8); Alkaline Phosphatase 62 U/L (38-126); Anion Gap 13.1 mEq/L (5-15); Aspartate Amino Transferase 27 U/L (14-36); Bilirubin,Total 0.9 mg/dl (0.2-1.3); Blood Urea Nitrogen 8 mg/dl (7-17); Calcium 9.1 mg/dl (8.4-10.2); Carbon Dioxide 24 mmol/L (22.0-30.0); Cholesterol 135 mg/dl (140-200); Estimated Glomerular Filt Rate 99 ml/min (>60); GFR (African American) 120 ML/MIN (>60); Globulin 2.8 g/dL (1.3-3.2); Glucose 90 mg/dl (74-100); Total Protein,Serum 7.2 g/dl (6.3-8.2); Triglycerides 70 mg/dl (30-150); VLDL Cholesterol 14 mg/dL (0-40)
[2025-01-20 10:21] LABS: Chol/HDL Ratio 3.1 (1-3.5); HDL Cholesterol 43 mg/dl (40-60)
[2025-01-20 10:24] LABS: Hemoglobin A1C 5.3 % (4.0-6.0)
[2025-01-20 10:31] LABS: 25-OH Vitamin D, Total 16.7 ng/mL (30-100); Direct LDL Cholesterol 80.93 mg/dL (100-129)
[2025-01-20 10:32] LABS: Free Thyroxine Index 3.3 ug/dL (5.93-13.13); T4 (Thyroxine) 10.8 ug/dl (5.53-11.0); Triiodothryronine (T3) Uptake 31 % (23.5-40.5)
[2025-01-20 10:46] LABS: Thyroid Stimulating Hormone 1.22 uIU/mL (0.465-4.68)
[2025-01-20 11:01] LABS: HIV Combo NEGATIVE (Negative)
[2025-01-20 11:09] LABS: Hepatitis C Ab Qual. W/ RFX NEGATIVE (Negative)
== END 2025-01-20 23:59 | disposition home or self-care (01) ==
LOC: LAB 09:31
PROVIDERS: PCP Nurse Practitioner Family; Visit Provider Nurse Practitioner Family
DX: G43.909 Migraine, unspecified, not intractable, without status migrainosus (principal); R53.83 Other fatigue; N64.4 Mastodynia; N63.10 Unspecified lump in the right breast, unspecified quadrant; J30.2 Other seasonal allergic rhinitis
CPT/HCPCS: 36415; 80053; 80061; 82306; 82533; 83036; 84436; 84443; 84479; 85025; 86803; 87389

== ENCOUNTER 2025-01-27 13:50 | Outpatient (CLI) | payer OTHER, BC, SELFPAY ==
--- NOTE | 2025-01-27 14:00 | MM_ITS ---
PROCEDURE INFORMATION: Exam: US Right Breast, Complete MG Right Diagnostic Breast Tomosynthesis Exam date and time: 01/27/2025 1:59 PM Age: 29 years old Clinical indication: Right breast palpable lump. Right breast tenderness TECHNIQUE: Imaging protocol: Complete ultrasound of all four quadrants of the right breast and the retroareolar regions, including ultrasound of the axilla when performed. Right Diagnostic tomosynthesis and 2D mammography including computer-aided detection (CAD) when performed. Unilateral or bilateral exam. COMPARISON: No relevant prior studies available. FINDINGS: MAMMOGRAPHY: Breast composition: There are scattered areas of fibroglandular density. Breast mammogram findings: There is no stellate mass, architectural distortion or suspicious microcalcifications in either breast to suggest malignancy. No skin thickening or axillary adenopathy. A skin marker was placed over an area of palpable concern in the right upper inner quadrant. Predominantly adipose tissue is seen ULTRASOUND: Breast ultrasound findings: Sonographic images of the right breast including the retroareolar region, all 4 quadrants and the axilla do not demonstrate any solid or cystic masses. No architectural distortion or acoustical shadowing. No skin thickening or axillary adenopathy. IMPRESSION: No mammographic or sonographic evidence of malignancy. Annual bilateral mammographic screening is recommended unless otherwise clinically indicated. ASSESSMENT: BI-RADS Category 1: Negative.
== END 2025-01-27 23:59 | disposition home or self-care (01) ==
LOC: RAD 13:50
PROVIDERS: PCP Nurse Practitioner Family; Visit Provider Nurse Practitioner Family
DX: N64.4 Mastodynia (principal); N63.12 Unspecified lump in the right breast, upper inner quadrant
CPT/HCPCS: 76641; 77062; 77066; G0279

== ENCOUNTER 2025-06-30 09:26 | Outpatient (CLI) | payer OTHER, BC, SELFPAY ==
--- NOTE | 2025-06-30 09:32 | XR_ITS ---
FINAL REPORT CLINICAL HISTORY: cough with blood, greenish discharge, soa, cp FINDINGS: PA and lateral views of the chest are obtained. There is no prior exam for comparison. The cardiac and mediastinal silhouettes are within normal limits. The lungs are clear. There is no pleural effusion, pneumothorax, or acute osseous abnormality. IMPRESSION: No radiographic evidence of acute cardiac or pulmonary disease. Reviewed, Interpreted and Dictated by Ninoska Marcus MD Transcribed by Sherine Lux Authenticated and [facility]
[2025-06-30 15:06] LABS: Coronavirus 19, PCR Not Detected (NotDetected); Influenza A, PCR Not Detected (NotDetected); Influenza B, PCR Not Detected (NotDetected)
== END 2025-06-30 23:59 | disposition home or self-care (01) ==
LOC: RAD 09:27
PROVIDERS: PCP Nurse Practitioner Family; Visit Provider Student in an Organized Health Care Education/Training Program
DX: J06.9 Acute upper respiratory infection, unspecified (principal); R05.9 Cough, unspecified
CPT/HCPCS: 71046; 87631